=== PATIENT | female | born 1970 | race African-American/Black ===

== ENCOUNTER 2017-05-24 07:23 | Outpatient (CLI) | payer BC ==
--- NOTE | 2017-05-24 09:56 | ULT ---
COMPLETE ABDOMINAL ULTRASOUND: HISTORY: A 46-year-old female with right lower quadrant and right upper quadrant pain. FINDINGS: Liver echogenicity is coarse and heterogeneous. Cholelithiasis with innumerable shadowing gallstones without overt pericholecystic fluid. A 3.7 x 4.4 cm right upper pole renal cyst. Common bile duct 0.4 cm. The visualized pancreas is unremarkable. IMPRESSION: 1. Extensive cholelithiasis without ductal dilatation. 2. Somewhat heterogeneous, somewhat nodular echogenicity throughout the liver, nonspecific, possibly nonspecific hepatic parenchymal process. 3. Right renal cyst. POS: [facility]
== END 2017-05-24 07:24 | disposition home or self-care (01) ==
LOC: ULT 07:23
PROVIDERS: ATTEND Family Medicine
DX: R10.11 Right upper quadrant pain (principal); R10.31 Right lower quadrant pain; K80.20 Calculus of gallbladder without cholecystitis without obstruction; N28.1 Cyst of kidney, acquired; K76.89 Other specified diseases of liver
CPT/HCPCS: 76700

== ENCOUNTER 2021-06-26 17:30 | Outpatient (CLI) | payer BC | END 2021-06-26 17:31 | disposition home or self-care (01) | LOC: SLEEPLAB 17:30 | PROVIDERS: ATTEND Family Medicine | DX: G47.33 Obstructive sleep apnea (adult) (pediatric) (principal); R53.83 Other fatigue; R40.0 Somnolence; R09.89 Other specified symptoms and signs involving the circulatory and respiratory systems; R51.9 Headache, unspecified; E66.9 Obesity, unspecified; F41.9 Anxiety disorder, unspecified; E11.9 Type 2 diabetes mellitus without complications; Z68.41 Body mass index [BMI] 40.0-44.9, adult | CPT/HCPCS: 95806 ==